=== PATIENT | male | born 1960 | race Caucasian/White ===

== ENCOUNTER 2021-12-20 12:35 | Emergency (ER) | payer OTHER ==
[~2021-12-20 12:35] MED LIST: FLOMAX0.4 MG PO; PERCOCET 5-3251 EACH PO; VITAMIN D21250 MCG PO
[2021-12-20 13:51] LABS: EOSINOPHIL 1.9 % (0-5); HCT 38.2 % (42.0-52.0); HGB 12.3 g/dl (13.2-18.0); LYMPHOCYTE 24.9 % (15-48); MCH 29.4 pg (25.0-31.0); MCHC 32.2 g/dL (32.0-36.0); MCV 91.4 fL (78.0-100.0); MONOCYTE 10.3 % (0-12); NEUTROPHIL 57.4 % (41-80); NRBC 0; PLT 209 K/uL (150-400); RBC 4.18 M/uL (4.70-6.00); RDW 15.9 % (11.5-14.0); WBC 9.5 K/uL (4.0-10.5)
[2021-12-20 14:05] LABS: ALBUMIN 3.6 g/dL (3.4-5.0); BILIRUBIN - TOTAL 0.4 mg/dL (0.2-1.0); BUN/CREAT RATIO (CALC) 19.7 RATIO; CREATININE 0.71 mg/dL (0.67-1.17); GLOBULIN (CALCULATION) 9.9 g/dL; POTASSIUM 4.1 mmol/L (3.5-5.1); TOTAL PROTEIN 13.5 g/dL (6.4-8.2)
[2021-12-20 15:31] LABS: BILIRUBIN NEGATIVE (NEGATIVE); BLOOD 1+ Ery/uL (NEGATIVE); CLARITY HAZY (CLEAR); COLOR YELLOW (YELLOW); GLUCOSE (U) NORMAL (NORMAL); LEUKOCYTES NEGATIVE Leu/uL (NEGATIVE); NITRITE NEGATIVE (NEGATIVE); PROTEIN 3+ mg/dL (NEGATIVE); SPECIFIC GRAVITY >=1.030 (1.001-1.030); UROBILINOGEN 0.2 mg/dL (0.2-1.0); pH 5.5 (5.0-9.0)
[2021-12-20 16:00] LABS: URINARY RBC RARE
[2021-12-20 16:01] LABS: BACTERIA 1+; MUCOUS TRACE; TRANSITIONAL EPITHELIAL CELLS RARE; YEAST PRESENT
[2021-12-20 16:02] LABS: AMORPHOUS URATES CRYSTALS TRACE
[2021-12-20 16:03] LABS: GRANULAR CASTS TRACE
== END 2021-12-20 21:00 | disposition other institution (70) ==
LOC: FER 12:35
PROVIDERS: Physician Assistant
DX: M48.061 Spinal stenosis, lumbar region without neurogenic claudication (principal); Z88.6 Allergy status to analgesic agent
CPT/HCPCS: 36415; 72158; 80053; 81001; 85025; 87088; A9579; J1170; J7030